=== PATIENT | female | born 1985 | race Native Hawaiian/Other Pacific Islander ===

== ENCOUNTER 2021-03-04 13:15 | Emergency (ER) | payer OTHER ==
[~2021-03-04] VITALS: Ht 149.9 cm; Wt 59.9 kg
[2021-03-04 16:31] VITALS: BP 126/68; TEMP 98
== END 2021-03-04 16:45 | disposition home or self-care (01) ==
LOC: ED 13:15
DX: J06.9 Acute upper respiratory infection, unspecified (principal); Z20.822 Contact with and (suspected) exposure to COVID-19; F17.210 Nicotine dependence, cigarettes, uncomplicated
CPT/HCPCS: 87635; 87651; 99283; U0003

== ENCOUNTER 2021-04-19 19:15 | Emergency (ER) | payer OTHER ==
[~2021-04-19] VITALS: Ht 149.9 cm; Wt 59.9 kg
[2021-04-19 20:01] LABS: PLATELET COUNT 118 K/uL (152-353)
[2021-04-19 20:13] LABS: POTASSIUM 4.1 mmol/L (3.6-5.2)
[2021-04-19 22:35] VITALS: BP 119/44; TEMP 98.5
== END 2021-04-19 22:40 | disposition home or self-care (01) ==
LOC: ED 19:15
PROVIDERS: Emergency Medicine
DX: N39.0 Urinary tract infection, site not specified (principal); U07.1 COVID-19; R52 Pain, unspecified
CPT/HCPCS: 36415; 80053; 81000; 82550; 83605; 85027; 87077; 87086; 87088; 87185; 96365; 96375; 99284; J0696; J1885; J2405

== ENCOUNTER 2021-06-13 13:00 | Emergency (ER) | payer OTHER ==
[~2021-06-13] VITALS: Ht 149.9 cm; Wt 59.9 kg
[2021-06-13 13:06] VITALS: TEMP 97.1
[2021-06-13 13:34] LABS: PLATELET COUNT 149 K/uL (152-353)
[2021-06-13 13:54] LABS: PARTIAL THROMBOPLASTIN TIME 22.8 SECONDS (24.5-33.6)
[2021-06-13 14:30] VITALS: BP 122/60
== END 2021-06-13 15:00 | disposition home or self-care (01) ==
LOC: ED 13:00
PROVIDERS: Hospitalist
DX: R00.2 Palpitations (principal); R07.89 Other chest pain; N39.0 Urinary tract infection, site not specified
CPT/HCPCS: 80053; 80307; 81000; 82550; 83880; 84484; 85027; 85610; 85730; 87088; 96372; 99284; J0696

== ENCOUNTER 2022-11-24 20:51 | Emergency (ER) | payer OTHER ==
[~2022-11-24] VITALS: Ht 149.9 cm; Wt 66.7 kg
[2022-11-24 20:55] VITALS: TEMP 99
[2022-11-24 22:43] LABS: PLATELET COUNT 182 K/uL (152-353)
[2022-11-24 23:00] VITALS: BP 132/70
== END 2022-11-24 23:00 | disposition home or self-care (01) ==
LOC: ED 20:51
PROVIDERS: Family Medicine
DX: J32.9 Chronic sinusitis, unspecified (principal); R51.9 Headache, unspecified; J02.9 Acute pharyngitis, unspecified; F17.210 Nicotine dependence, cigarettes, uncomplicated
CPT/HCPCS: 36415; 81002; 85027; 87502; 87651; 96372; 99283; J1885